=== PATIENT | female | born 1990 | race Caucasian/White ===

== ENCOUNTER 2019-01-14 13:57 | Emergency (ER) | payer SELFPAY ==
--- NOTE | 2019-01-14 15:25 | EDM.PDOC ---
ED HPI GENERAL MEDICAL PROBLEM - General Chief Complaint: ENT Problem Stated Complaint: DENTAL PAIN Time Seen by Provider: 01/14/19 15:19 Source of Information: Reports: Patient History Limitations: Reports: No Limitations - History of Present Illness INITIAL COMMENTS - FREE TEXT/NARRATIVE: 28-year-old female presents to the ED with dental pain that she's had for about a week. She did see her dentist at home prior to leaving and coming to [place]. Badly decayed and is going to need to be extracted. This is already planned to occur. She is currently on clindamycin 300 mg 4 times daily for the last 3 days. Therefore the antibiotic is to starting to work. Right side of her face is starting to swell along the mandible. The pain is uncontrollable. No sleep for the last day and a half. She's been using Tylenol alternating with Motrin with very little relief of the pain. Pain is described as constant throbbing and pulsating. His right hemifacial along her mandible and up into her right ear. Onset: Gradual Onset Date: 01/11/19 Duration: Day(s):, Getting Worse Location: Reports: Face Quality: Reports: Ache (Right lower mandibular pain from dental abscess), Throbbing, Other Severity: Severe (Pulsating) Improves with: Reports: None Worsens with: Reports: None ( 7-8 out of 10) Context: Reports: Other (Spontaneous occurrence of dental abscess). Denies: Activity, Exercise, Lifting, Sick Contact, Trauma Associated Symptoms: Reports: No Other Symptoms Treatments HEDIS ABSTRACTOR: Reports: Other (see below) Other Treatments HEDIS ABSTRACTOR: clindmycin and motrin and tylenol Right Lower Tooth/Teeth Pain Score (Numeric/FACES): 8 - Related Data Allergies Allergy/AdvReac Type Severity Reaction Status Date / Time latex Allergy Rash Verified 01/14/19 14:11 Home Meds: Home Meds Clindamycin HCl 300 mg PO QID 01/14/19 [History] Hydrocodone/Acetaminophen [[place] 5-325 Tablet] 1 - 2 each PO Q4H PRN #20 tablet 01/14/19 [Rx] Past Medical History Genitourinary History: Reports: UTI, Recurrent - Past Surgical History Other HEENT Surgeries/Procedures: dental issues Female Surgical History: Reports: Section Social & Family History - Tobacco Use Smoking Status *Q: Former Smoker Used Tobacco, but Quit: Yes Month/Year Tobacco Last Used: 2 months - Caffeine Use Caffeine Use: Reports: Soda, Tea - Recreational Drug Use Recreational Drug Use: No - Living Situation & Occupation Living situation: Reports: Occupation: Unemployed ED ROS ENT - Review of Systems Review Of Systems: See Below ([id number] mom.) Constitutional: Reports: Malaise, Weakness, Fatigue (From not sleeping). Denies : Fever, Chills HEENT: Reports: Dental Pain, Other (Right lower second bicuspid and first molar tooth. She reports x-rays reveal her wisdom teeth are coming in at a slant and pushing on her second molar tooth ) Respiratory: Reports: No Symptoms (and will likely have to be extracted as well. ) Cardiovascular: Reports: No Symptoms Endocrine: Reports: Fatigue GI/Abdominal: Reports: No Symptoms : Reports: No Symptoms Musculoskeletal: Reports: No Symptoms Skin: Reports: No Symptoms Neurological: Reports: No Symptoms Psychiatric: Reports: No Symptoms Hematologic/Lymphatic: Reports: No Symptoms Immunologic: Reports: No Symptoms ED EXAM, ENT - Physical Exam Exam: See Below Exam Limited By: No Limitations General Appearance: Alert, WD/WN, Moderate Distress Eye Exam: Bilateral Eye: Normal Inspection, PERRL Ears: Normal TMs Mouth/Throat: Dental Abcess (The right lower second bicuspid tooth is badly decayed with over half the tooth gone. The surrounding gingiva is mildly swollen but no dental abscess available to drain.) Neck: Normal Inspection, Supple, Non-Tender, Full Range of Motion. No: Lymphadenopathy (L), Lymphadenopathy (R) Respiratory/Chest: No Respiratory Distress, Lungs Clear, Normal Breath Sounds, No Accessory Muscle Use, Chest Non-Tender Cardiovascular: Normal Peripheral Pulses, Regular Rate, Rhythm, No Edema, No Gallop, No Murmur, No Rub Course - Vital Signs Last Recorded V/S: Last Vital Signs Temp 37.1 C 01/14/19 14:15 Pulse 83 01/14/19 14:15 Resp 20 01/14/19 14:15 BP 132/93 H 01/14/19 14:15 Pulse Ox 99 01/14/19 14:15 - Radiology Interpretation Free Text/Narrative:: 28-year-old female presents to the ED with dental pain secondary to severe dental caries involving the right lower second bicuspid tooth. Proximally 40% of the tooth is badly decayed and eroded away. Surrounding gingiva margin is erythematous and swollen without any abscess pointing to the surface. Pain management is unsatisfactory using Motrin and Tylenol. She is currently on clindamycin 300 mg 4 times daily but can't sleep or function due to the pain. Plan we will give her [place] 5/325 mg tabs one or 2 every 4-6 hours for pain relief Motrin 600 mg every 6 hours as well to relieve pain and inflammation. Last follow-up with her dentist when she gets back home to have the tooth extracted. Advised about potential for constipation. 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 Departure - Departure Time of Disposition: 15:25 Disposition: Home, Self-Care 01 Condition: Fair Clinical Impression: Dental abscess - Discharge Information *PRESCRIPTION DRUG MONITORING PROGRAM REVIEWED*: Not Applicable *COPY OF PRESCRIPTION DRUG MONITORING REPORT IN PATIENT DARRYL: Not Applicable Prescriptions: Hydrocodone/Acetaminophen [[place] 5-325 Tablet] 1 - 2 each PO Q4H PRN #20 tablet PRN Reason: dental pain Instructions: Dental Abscess, [id number] Referrals: PCP,Not In Area [Primary Care Provider] - Forms: ED Department Discharge Additional Instructions: Evaluation the emergency room today in regards to increasing pain from a dental abscess right lower tooth. The tooth is badly decayed and is going to need to be extracted. Continue clindamycin 300 mg 4 times daily until follow-up with dentist. Continue Motrin 600 mg every 6 hours to reduce pain and inflammation. May use [place] 5/325 mg tablets one or 2 every 4-6 hours for pain relief as needed. Suggest MiraLAX powder 17 g or 1 scoop daily to prevent constipation while on the pain pills. Follow-up with dentist as planned.
== END 2019-01-14 15:38 | disposition home or self-care (01) ==
LOC: JD.ED 13:57
DX: K04.7 Periapical abscess without sinus (principal); Z87.891 Personal history of nicotine dependence; Z91.040 Latex allergy status; Z79.899 Other long term (current) drug therapy
CPT/HCPCS: 99282

== ENCOUNTER 2019-01-17 14:43 | Emergency (ER) | payer SELFPAY ==
--- NOTE | 2019-01-17 15:32 | EDM.PDOC ---
ED HPI GENERAL MEDICAL PROBLEM - General Chief Complaint: General Stated Complaint: DENTAL COMPLAINT Time Seen by Provider: 01/17/19 15:05 Source of Information: Reports: Patient History Limitations: Reports: No Limitations - History of Present Illness INITIAL COMMENTS - FREE TEXT/NARRATIVE: 28-year-old female presents for evaluation and treatment of dental pain. Patient reports pain to the right lower molar. She was seen by dentist 5 days ago started on clindamycin. She has 1 pill left but has not had any improvement. Was seen in the ER 3 days ago and given 20 [place]. She has 3 of these left. Patient reports no improvement with her symptoms. She is complaining of facial swelling and chills. No fevers, nausea or vomiting. She reports pain to the right side of her face up into her right ear. Denies any bad taste in her mouth. Patient is visiting from [place]. Plans to go home in a week. Right Lower Tooth/Teeth Pain Score (Numeric/FACES): 10 - Related Data Allergies Allergy/AdvReac Type Severity Reaction Status Date / Time latex Allergy Rash Verified 01/14/19 14:11 Home Meds: Home Meds Clindamycin HCl 300 mg PO QID 01/14/19 [History] Hydrocodone/Acetaminophen [[place] 5-325 Tablet] 1 - 2 each PO Q4H PRN #20 tablet 01/14/19 [Rx] Acetaminophen/HYDROcodone [[place] 325-5 MG] 1 tab PO Q6H PRN #20 tablet 01/17/19 [Rx] Amoxicillin/Clavulanate K [Augmentin 875-125 MG] 1 tab PO BID #20 tab 01/17/19 [ Rx] Past Medical History Genitourinary History: Reports: UTI, Recurrent - Past Surgical History Other HEENT Surgeries/Procedures: dental issues Female Surgical History: Reports: Section Social & Family History - Family History Family Medical History: Noncontributory - Tobacco Use Smoking Status *Q: Former Smoker Used Tobacco, but Quit: Yes Month/Year Tobacco Last Used: 01/2019 - Caffeine Use Caffeine Use: Reports: Tea - Recreational Drug Use Recreational Drug Use: No - Living Situation & Occupation Living situation: Reports: Occupation: Unemployed ED ROS GENERAL - Review of Systems Review Of Systems: See Below Constitutional: Denies: Fever, Chills HEENT: Reports: Dental Pain (right lower molar), Ear Pain (right), Other ( reprots right sided facial pain and swelling) GI/Abdominal: Denies: Nausea, Vomiting ED EXAM, GENERAL - Physical Exam Exam: See Below Exam Limited By: No Limitations General Appearance: Alert, WD/WN, No Apparent Distress Ears: Normal External Exam, Normal Canal, Hearing Grossly Normal, Normal TMs Nose: Normal Inspection Throat/Mouth: Normal Inspection, Normal Lips, Normal Voice, No Airway Compromise , Other (#30 is broken and abscessed, tender; gingivitis) Respiratory/Chest: No Respiratory Distress, Lungs Clear, Normal Breath Sounds Cardiovascular: Normal Peripheral Pulses, Regular Rate, Rhythm, No Murmur Neurological: Alert, Oriented, Normal Cognition Psychiatric: Normal Affect, Normal Mood Skin Exam: Warm, Dry, Normal Color Course - Vital Signs Last Recorded V/S: Last Vital Signs Temp 98.9 F 01/17/19 14:58 Pulse 65 01/17/19 14:58 Resp 16 01/17/19 14:58 BP 148/102 H 01/17/19 14:58 Pulse Ox 100 01/17/19 14:58 Departure - Departure Time of Disposition: 15:29 Disposition: Home, Self-Care 01 Condition: Fair Clinical Impression: Dental abscess, Dentalgia - Discharge Information *PRESCRIPTION DRUG MONITORING PROGRAM REVIEWED*: Yes *COPY OF PRESCRIPTION DRUG MONITORING REPORT IN PATIENT DARRYL: No Prescriptions: Acetaminophen/HYDROcodone [[place] 325-5 MG] 1 tab PO Q6H PRN #20 tablet PRN Reason: Pain Amoxicillin/Clavulanate K [Augmentin 875-125 MG] 1 tab PO BID #20 tab Instructions: Dental Abscess, [id number] Referrals: PCP,Not In Area [Primary Care Provider] - Forms: ED Department Discharge Additional Instructions: Augmentin 1 tab twice a day for 10 days. Take this medication with food. Recommend he wear a probiotic to help reduce side effects of upset stomach, nausea and diarrhea. [id number] ibuprofen 600-800 mg every 6 hours. Do not take more than 3200 mg of ibuprofen 1 day. For pain not relieved by ibuprofen you may take [place] one or 2 tabs every 6 hours. Tall Timbers is habit-forming, take as few of these as needed to control your pain. Do not drive or operate machinery within 10 hours of taking [place]. Recommend using [id number] Orajel or clove oil for additional pain relief. Follow-up with a dentist as soon as possible. Please return the ER if your symptoms change or worsen.
== END 2019-01-17 15:40 | disposition home or self-care (01) ==
LOC: JD.ED 14:43
DX: K04.7 Periapical abscess without sinus (principal); Z87.891 Personal history of nicotine dependence; Z91.040 Latex allergy status; Z79.899 Other long term (current) drug therapy
CPT/HCPCS: 99282